=== PATIENT | female | born 1985 | race Two or more races ===

== ENCOUNTER 2020-08-15 10:52 | Outpatient (CLI) | payer OTHER | END 2020-08-15 11:12 | disposition home or self-care (01) | LOC: SONOGRAMA 10:52 | PROVIDERS: ATTEND Obstetrics & Gynecology Reproductive Endocrinology | DX: N84.0 Polyp of corpus uteri (principal); N91.1 Secondary amenorrhea; N97.8 Female infertility of other origin ==

== ENCOUNTER 2025-03-04 05:51 | Day surgery (SDC) | payer OTHER ==
[2025-02-24 10:57] VITALS: BP 129/84
[~2025-03-04] VITALS: Ht 175.3 cm; Wt 133.8 kg
[~2025-03-04 05:51] MED LIST: LOSARTAN-HCTZ1 EACH PO; ZOCOR20 MG PO
[2025-03-04] MEDS ORDERED: DOXYCYCLINE HY100 M2 PO (11:09)
[2025-03-04] MEDS ORDERED: IBU600 MG PO (11:09)
[2025-03-04] MEDS ORDERED: CEFAZOLIN SODIUM 1,000 MG VIAL IV ONE (11:30)
[2025-03-04] MEDS ORDERED: POVIDONE-IODINE 118 ML BOTT TOP ONE (11:30)
[2025-03-04] MEDS ORDERED: MORPHINE SULFATE 4 MG/ML VIAL IV ONE (14:30)
== END 2025-03-04 16:10 | disposition home or self-care (01) ==
LOC: CIR.AMB 05:51
PROVIDERS: ATTEND Obstetrics & Gynecology
DX: D25.0 Submucous leiomyoma of uterus (principal); N84.0 Polyp of corpus uteri